=== PATIENT | male | born 1975 | race Caucasian/White ===

== ENCOUNTER → 2017-02-01 | Outpatient (CLI) | payer BC ==
--- NOTE | 2017-02-01 12:49 | DIAGNOSTIC IMAGING REPORT ---
TESTICULAR ULTRASOUND HISTORY: Right-sided testicular pain. COMPARISON: None. FINDINGS: Right testis: 5.1 x 2.4 x 3.4 cm. There are no intratesticular masses. Normal color flow. No significant hydrocele. There are few tiny cysts within the epididymal head measuring up to 3 mm.. Left testis: 4.9 x 3.1 x 2.2 cm. There are no intratesticular masses. Normal color flow. No significant hydrocele. There is a 4 mm cyst within the epididymal head.. Small fat-containing reducible right inguinal hernia. IMPRESSION: 1. Normal bilateral testes. 2. Small bilateral epididymal head cysts. 3. Small fat-containing reducible right inguinal hernia. Electronically signed by: Levy Leslie M.D. 02/01/2017 12:47 PM Dictated Date/Time: 02/01/2017 12:46 PM
== END | disposition home or self-care (01) ==
LOC: C.ULTR 12:03
PROVIDERS: ATTEND Family Medicine Sports Medicine
DX: N50.811 Right testicular pain (principal); Z98.52 Vasectomy status